=== PATIENT | female | born 1955 | race Caucasian/White ===

== ENCOUNTER → 2017-06-23 | Outpatient (CLI) | payer BC ==
--- NOTE | 2017-06-23 09:12 | WOMENS IMAGING REPORT ---
EXAM DESCRIPTION: BILAT SCREENING MAMMO W/CAD COMPLETED DATE/TIME: 06/23/2017 8:24 am REASON FOR STUDY: SCREENING MAMMO Z12.31 ENCNTR SCREEN MAMMOGRAM FOR MALIGNANT NEOPLASM OF BENJY COMPARISON: Annual priors dating back to January 2008. TECHNIQUE: Standard craniocaudal and mediolateral oblique views of each breast recorded using Favesa l acquisition. LIMITATIONS: None. FINDINGS: No masses, calcifications or architectural distortion. No areas of suspicion. Read with the assistance of CAD. .[facility] - R2 Cenova Version 1.3 .[facility] Imaging - R2 Cenova Version 1.3 .[facility] Imaging - R2 Cenova Version 2.4 .[facility] - R2 Cenova Version 2.4 .[facility] - R2 Customer Business Manager Version 9.2 IMPRESSION: NORMAL MAMMOGRAM. BIRADS 1. BREAST DENSITY: b. There are scattered areas of fibroglandular density. BIRAD: 1 NEGATIVE RECOMMENDATION: ROUTINE SCREENING COMMENT: The patient has been notified of the results by letter per SA requirements. Additional no tification policies are in place for contacting patient with suspicious or incomplete findings. Quality ID #225: The [employer] recommends an annual screening mammogram for women aged 40 years or over. This facility utilizes a reminder system to ensure that all patients receive reminder letters, and/or direct phone calls for appointments. This includes reminders for routine scr eening mammograms, diagnostic mammograms, or other Breast Imaging Interventions when appropriate. Th is patient will be placed in the appropriate reminder system. The [employer] (ACR) has developed recommendations for screening MRI of the breast s in certain patient populations, to be used in conjunction with mammography. Breast MRI surveillanc e may be appropriate for women with more than 20% lifetime risk of developing breast cancer as deter mined by genetic testing, significant family history of the disease, or history of mantle radiation f or Hodgkins Disease. ACR Practice Guidelines 2008. TECHNICAL DOCUMENTATION: FINDING NUMBER: (1) ASSESSMENT: (1) JOB ID: [id number] [employer]- All Rights Reserved
== END ==
LOC: WI 08:06
PROVIDERS: ATTEND Nurse Practitioner Family
DX: Z12.31 Encounter for screening mammogram for malignant neoplasm of breast (principal)
CPT/HCPCS: 77067; G0202

== ENCOUNTER → 2018-06-25 | Outpatient (CLI) | payer BC ==
--- NOTE | 2018-06-25 10:31 | WOMENS IMAGING REPORT ---
EXAM DESCRIPTION: BILAT SCREENING MAMMO W/CAD COMPLETED DATE/TIME: 06/25/2018 9:02 am REASON FOR STUDY: SCREENING MAMMO Z12.31 ENCNTR SCREEN MAMMOGRAM FOR MALIGNANT NEOPLASM OF BENJY COMPARISON: [id number] TECHNIQUE: Standard craniocaudal and mediolateral oblique views of each breast recorded using digita l acquisition. LIMITATIONS: None. FINDINGS: No masses, calcifications or architectural distortion. No areas of suspicion. Read with the assistance of CAD. .[facility] - R2 Cenova Version 1.3 .[facility] Imaging - R2 Cenova Version 1.3 .[facility] Imaging - R2 Cenova Version 2.4 .[facility] [place] R2 Cenova Version 2.4 .[facility] - R2 International Student Advisor Version 9.2 IMPRESSION: NORMAL MAMMOGRAM. BIRADS 1. BREAST DENSITY: b. There are scattered areas of fibroglandular density. BIRAD: 1 NEGATIVE RECOMMENDATION: ROUTINE SCREENING COMMENT: The patient has been notified of the results by letter per MQSA requirements. Additional no tification policies are in place for contacting patient with suspicious or incomplete findings. Quality ID #225: The [employer] recommends an annual screening mammogram for women aged 40 years or over. This facility utilizes a reminder system to ensure that all patients receive reminder letters, and/or direct phone calls for appointments. This includes reminders for routine scr eening mammograms, diagnostic mammograms, or other Breast Imaging Interventions when appropriate. Th is patient will be placed in the appropriate reminder system. The [employer] (ACR) has developed recommendations for screening MRI of the breast s in certain patient populations, to be used in conjunction with mammography. Breast MRI surveillanc e may be appropriate for women with more than 20% lifetime risk of developing breast cancer as deter mined by genetic testing, significant family history of the disease, or history of mantle radiation f or Hodgkins Disease. ACR Practice Guidelines 2008. TECHNICAL DOCUMENTATION: FINDING NUMBER: (1) ASSESSMENT: (1) JOB ID: [id number] [employer]- All Rights Reserved Reading location - IP/workstation name: [email or web address]
== END ==
LOC: WI 08:12
PROVIDERS: ATTEND Physician Assistant
DX: Z12.31 Encounter for screening mammogram for malignant neoplasm of breast (principal)
CPT/HCPCS: 77067

== ENCOUNTER 2018-07-19 08:50 | Day surgery (SDC) | payer BC ==
[2018-07-10 12:09] LABS: APPEARANCE,URINE CLEAR; BILIRUBIN,URINE NEGATIVE (NEGATIVE); COLOR,URINE STRAW; GLUCOSE, URINE NEGATIVE (NEGATIVE); KETONES,URINE NEGATIVE (NEGATIVE); LEUKOCYTE ESTERASE,URINE MODERATE (NEGATIVE); NITRITE,URINE NEGATIVE (NEGATIVE); PROTEIN,URINE NEGATIVE (NEGATIVE); URINE SPECIFIC GRAVITY 1.009; UROBILINOGEN,URINE NEGATIVE mg/dL (<2.0)
--- NOTE | 2018-07-10 12:35 | RADIOLOGY REPORT (SQ) ---
EXAM DESCRIPTION: CHEST PA/LATERAL COMPLETED DATE/TIME: 07/10/2018 11:49 am REASON FOR STUDY: PRE-OP COMPARISON: None. EXAM PARAMETERS: NUMBER OF VIEWS: two views TECHNIQUE: Digital Frontal and Lateral radiographic views of the chest acquired. RADIATION DOSE: NA LIMITATIONS: none FINDINGS: LUNGS AND PLEURA: No opacities, masses or pneumothorax. No pleural effusion. MEDIASTINUM AND HILAR STRUCTURES: No masses or contour abnormalities. HEART AND VASCULAR STRUCTURES: Heart normal size. No evidence for failure. BONES: No acute findings. HARDWARE: Clips right upper quadrant post cholecystectomy OTHER: No other significant finding. IMPRESSION: NO SIGNIFICANT RADIOGRAPHIC FINDING IN THE CHEST. TECHNICAL DOCUMENTATION: JOB ID: [id number] [employer]- All Rights Reserved Reading location - IP/workstation name: [email or web address]
[2018-07-10 12:45] LABS: BLOOD UREA NITROGEN 15 mg/dL (7-20); CALCIUM 9.3 mg/dL (8.4-10.2); GLUCOSE 85 mg/dL (75-110)
[2018-07-10 12:46] LABS: ALANINE AMINOTRANSFERASE 22 U/L (9-52); ALBUMIN 4.5 g/dL (3.5-5.0); ALKALINE PHOSPHATASE 90 U/L (38-126); ANION GAP 11 (5-19); ASPARTATE AMINO TRANSFERASE 21 U/L (14-36); BILIRUBIN,DIRECT 0.3 mg/dL (0.0-0.4); BILIRUBIN,TOTAL 0.9 mg/dL (0.2-1.3); CARBON DIOXIDE 27 mmol/L (22-30); CHLORIDE 104 mmol/L (98-107); POTASSIUM 4.5 mmol/L (3.6-5.0)
[2018-07-10 12:47] LABS: TOTAL PROTEIN 7.4 g/dL (6.3-8.2)
[2018-07-10 13:14] LABS: HEMATOCRIT 44.3 % (36.0-47.0); HEMOGLOBIN 14.7 g/dL (12.0-15.5); MEAN CORPUSCULAR HEMOGLOBIN 30.3 pg (27.0-33.4); MEAN CORPUSCULAR VOLUME 91 fl (80-97); RED BLOOD COUNT 4.86 10^6/uL (3.72-5.28); WHITE BLOOD COUNT 6.2 10^3/uL (4.0-10.5)
[2018-07-10 13:15] LABS: MEAN CORPUSCULAR HGB CONC 33.3 g/dL (32.0-36.0); PLATELET COUNT 202 10^3/uL (150-450); RED CELL DISTRIBUTION WIDTH 13.3 % (11.5-14.0)
--- NOTE | 2018-07-10 23:09 | EKG REPORT ---
SEVERITY:- NORMAL ECG - SINUS RHYTHM : Confirmed by: Katy Márquez 10-Jul-2018 23:08:52
[~2018-07-19 08:50] MED LIST: CEFAZOLIN 2 GM/D5W RTU 2 GM/50 ML RTUPB IV ONE; CEFAZOLIN 2 GM/D5W RTU 2 GM/50 ML RTUPB IV PRN; LACTATED RINGERS 1000 ML IV PRN; LIDOCAINE 0.5% INJ-PF (5 MG/ML) 50 ML SDV SUBCUT PRN; LIDOCAINE 0.5%/EPINEPHRINE INJ 50 ML VIAL ONE
[2018-07-19] MEDS ORDERED: ROCURONIUM BROMIDE INJ 50 MG/5 ML VIAL IV ONE (09:31)
[2018-07-19] MEDS ORDERED: NEOSTIGMINE METHYLSULFATE 10 MG/10 ML VIAL ONE (09:31)
[2018-07-19] MEDS ORDERED: ONDANSETRON HCL INJ/PF 4 MG/2 ML SDV ONE ×2 (09:31→14:52)
[2018-07-19] MEDS ORDERED: GLYCOPYRROLATE 1 MG/5 ML SYRINGE ONE (09:31)
[2018-07-19] MEDS ORDERED: DEXAMETHASONE SOD PHOSPHATE INJ 4 MG/1 ML VIAL ONE (09:31)
[2018-07-19] MEDS ORDERED: HYDROMORPHONE HCL INJ/PF 2 MG/ML AMPULE ONE (10:03)
[2018-07-19] MEDS ORDERED: FENTANYL CITRATE INJ/PF 250 MCG/5 ML AMPULE ONE (10:03)
[2018-07-19] MEDS ORDERED: ACETAMINOPHEN 1,000 MG/100 ML RTUPB IV ONE (10:03)
[2018-07-19] MEDS ORDERED: PROPOFOL INJ 200 MG/20 ML VIAL IV ONE (10:03)
[2018-07-19] MEDS ORDERED: MIDAZOLAM 2 MG/2 ML INJ ONE (10:03)
[2018-07-19] MEDS ORDERED: PROMETHAZINE HCL INJ 25 MG/1 ML VIAL IV PRN ×3 (10:59→13:44)
[2018-07-19] MEDS ORDERED: DIPHENHYDRAMINE HCL 50 MG/ML VIAL IV PRN (10:59)
[2018-07-19] MEDS ORDERED: MEPERIDINE HCL/PF INJ 25 MG/1 ML DISP.SYRIN IV PRN (10:59)
[2018-07-19] MEDS ORDERED: FENTANYL CITRATE INJ/PF 100 MCG/2 ML AMPUL IV PRN ×3 (10:59)
[2018-07-19] MEDS ORDERED: PROMETHAZINE HCL INJ 25 MG/1 ML VIAL ONE (13:41)
[2018-07-19] MEDS ORDERED: SIMETHICONE 80 MG TAB.CHEW PO PRN (13:44)
[2018-07-19] MEDS ORDERED: OXYCODONE-ACETAMINOPHEN 5-325 MG TABLET PO PRN ×2 (13:44)
[2018-07-19] MEDS ORDERED: HYDROMORPHONE HCL INJ/PF 2 MG/ML AMPULE IV PRN (13:44)
[2018-07-19] MEDS ORDERED: ACETAMINOPHEN 325 MG TABLET PO PRN (13:44)
[2018-07-19] MEDS ORDERED: ACETAMINOPHEN 1,000 MG/100 ML RTUPB IV PRN (13:44)
--- NOTE | 2018-07-19 14:03 | Operative Report ---
Operative Report DATE OF SURGERY: 07/19/18 PREOPERATIVE DIAGNOSIS: Cervical prolapse to the introitus and cystocele as well as gaping introitus POSTOPERATIVE DIAGNOSIS: Same OPERATION: Laparoscopic assisted vaginal hysterectomy bilateral salpingo- oophorectomy anterior and posterior repair SURGEON: KRYSTA TINEO ANESTHESIA: GA TISSUE REMOVED OR ALTERED: Uterus cervix fallopian tubes ovaries COMPLICATIONS: None ESTIMATED BLOOD LOSS: 125 cc INTRAOPERATIVE FINDINGS: Adhesions at the left fallopian tube and ovary otherwise normal-appearing ovaries and uterus. PROCEDURE: Patient was taken the OR and placed in supine position. General anesthesia was induced. She is placed in the dorsolithotomy position using Guillermo stirrups. Her abdomen and vagina and perineum were prepared and draped in sterile fashion. A weighted speculum was placed in the vagina and a V care uterine manipulator was placed into the uterus. A Stuart catheter was placed in the bladder for drainage. An incision was made at the umbilicus and natural umbilical defect was identified and blunt port was placed. Laparoscopy confirmed appropriate placement. A left lateral port was placed under laparoscopic visualization and a suprapubic port was placed under laparoscopic visualization. View of the pelvis was good the left ovary and tube were adhesed the right ovary and tube were free. The ureters were identified well away from the ovarian pedicles. The right ovary and tube were retracted medially and the infundibulopelvic pedicle was ligated and then cut with the LigaSure device. The mesosalpinx was also ligated and cut with the LigaSure device. Next the adhesions on the left tube and ovary were freed up using sharp and blunt dissection. This allowed the tube and ovary to be retracted medially and using the LigaSure device the infundibulopelvic pedicle was ligated and cut as well as the mesosalpinx which was ligated and cut with the LigaSure device. Next the broad ligament was divided by clamping next to the uterine body with the LigaSure device and using cautery and then cutting the tissue. Also while elevating the uterus up out of the pelvis with the V care manipulator the uterine arteries were also clamped ligated and cut directly next to the uterus using the LigaSure device. At this point we stopped with the abdominal portion of the procedure and proceeded to the vaginal portion. A weighted speculum was placed in the vagina. The cervix was grasped with tenaculum and infiltrated around its circumference with a dilute solution of lidocaine with epinephrine. A circumferential incision was made on the cervix and the vaginal skin was reflected off the cervix using sharp and blunt dissection. The posterior cul-de-sac was palpated and then entered with curved Parks scissors. A long weighted speculum was then placed through this incision. The anterior cul-de-sac was identified using blunt and sharp dissection. The peritoneum was grasped and incised entering the anterior cul-de-sac. And a Grant retractor was placed through this incision. The uterosacral ligaments were then clamped cut and ligated using a curved Duane clamp and transfixation suture of 0 Vicryl. The cardinal ligaments were also clamped cut and ligated using curved Duane clamp and transfixation suture of 0 Vicryl. The uterus tubes and ovaries were then removed through the vagina. The pedicles were inspected for bleeding and no active bleeding was found. Angle suture of 0 Vicryl were placed bilaterally incorporating anterior vaginal mucosa uterosacral pedicle and posterior vaginal mucosa. The next step was to address the cystocele. The edge of the vaginal mucosa was grasped at 6:00 with Allis clamps. The vaginal mucosa was infiltrated with a dilute solution of lidocaine with epinephrine. A vertical midline incision was then made with Metzenbaum scissors over the cystocele. The edges of the vaginal skin were grasped with Allis clamps. Using sharp and blunt dissection the vaginal skin was reflected off the cystocele. 2 pursestring sutures of 3-0 chromic were then used to decrease the size of the cystocele. The lateral tissue was then brought medially with interrupted sutures of 2-0 Vicryl which closed the lateral tissue over the cystocele. The edge of the anterior vaginal mucosa was trimmed and the vaginal mucosa was closed with interrupted sutures of 2-0 Vicryl. At the end of the procedure there was no more cystocele. The vaginal cuff was closed with a running suture of 0 Vicryl. Next to address the gaping vagina Allis clamps were placed at 7:00 and 5:00 on the vagina. A triangular piece of skin on the perineum was removed with the scalpel. A 0 Vicryl stitch was then used to bring the perineum together greatly diminishing the diameter of the vaginal opening. Care was taken to still allow the opening enough room to allow intercourse. A second perineal stitch was placed just below the initial stitch to close off the remainder of the perineum. The cut edge of the vaginal mucosa was also closed with interrupted suture of Vicryl. Hemostasis was good the vagina was irrigated and suctioned free of fluid. There was good depth to the vaginal canal. The tanning wheel operator then re-scrubbed. We went back to the abdominal portion of the case. The abdomen was reinsufflated and the pelvis was inspected for bleeding. The pelvis was irrigated and blood and fluid were suctioned free. No active bleeding was seen at the vaginal cuff or at the pedicles. The ports were removed under laparoscopic visualization. The gas was allowed to escape from the abdomen. The umbilical port and scope were removed at the same time. The fascia at the umbilicus was closed with a 2-0 Vicryl and skin closed with 4-0 undyed Vicryl at all 3 sites. The patient was extubated and taken to recovery in stable condition.
[2018-07-19] MEDS ORDERED: SCOPOLAMINE HYDROBROMIDE 1.5 MG PATCH.TD72 ONE (14:51)
[2018-07-19] MEDS: KETOROLAC TROMETHAMINE INJ/PF 30 MG/1 ML SDV IV SCH ×2 (16:28→21:05)
[2018-07-19] MEDS: IBUPROFEN 800 MG TABLET PO SCH (17:14)
[2018-07-19] MEDS: DOCUSATE SODIUM 100 MG CAPSULE PO SCH (17:15)
[2018-07-19 17:19] LABS: ABSOLUTE LYMPHOCYTES (AUTO) 0.7 10^3/uL (0.5-4.7); ABSOLUTE MONOCYTES (AUTO) 0.4 10^3/uL (0.1-1.4); ABSOLUTE NEUT (AUTO) 8.9 10^3/uL (1.7-8.2); BASOPHILS % (AUTO) 0.1 % (0-2); HEMATOCRIT 38.7 % (36.0-47.0); HEMOGLOBIN 13.2 g/dL (12.0-15.5); MEAN CORPUSCULAR HEMOGLOBIN 30.6 pg (27.0-33.4); MEAN CORPUSCULAR HGB CONC 34.1 g/dL (32.0-36.0); MEAN CORPUSCULAR VOLUME 90 fl (80-97); MONOCYTES % (AUTO) 3.9 % (3-13); PLATELET COUNT 182 10^3/uL (150-450); RED BLOOD COUNT 4.32 10^6/uL (3.72-5.28); RED CELL DISTRIBUTION WIDTH 13.3 % (11.5-14.0); TOTAL CELLS COUNTED % (AUTO) 100 %; WHITE BLOOD COUNT 10.1 10^3/uL (4.0-10.5)
[2018-07-19] MEDS: RINGERS SOLUTION,LACTATED 1,000 ML IV PRN (21:05)
[2018-07-20] MEDS: IBUPROFEN 800 MG TABLET PO SCH ×2 (03:17→05:35)
[2018-07-20] MEDS: KETOROLAC TROMETHAMINE INJ/PF 30 MG/1 ML SDV IV SCH (05:34)
[2018-07-20] MEDS: RINGERS SOLUTION,LACTATED 1,000 ML IV PRN (05:43)
[2018-07-20 07:00] LABS: HEMATOCRIT 35.5 % (36.0-47.0); MEAN CORPUSCULAR HEMOGLOBIN 30.9 pg (27.0-33.4); MEAN CORPUSCULAR HGB CONC 33.9 g/dL (32.0-36.0); MEAN CORPUSCULAR VOLUME 91 fl (80-97); PLATELET COUNT 166 10^3/uL (150-450); RED BLOOD COUNT 3.89 10^6/uL (3.72-5.28); RED CELL DISTRIBUTION WIDTH 13.2 % (11.5-14.0); WHITE BLOOD COUNT 8.5 10^3/uL (4.0-10.5)
--- NOTE | 2018-07-20 09:50 | PDOC DISCHARGE SUMMARY ---
General - Admit/Disc Date/PCP Admission Date/Primary Care Provider: SHANNON WINTERS PA-C Discharge Date: 07/20/18 - Discharge Diagnosis (1) Complete uterine prolapse with prolapse of anterior vaginal wall Is this a current diagnosis for this admission?: Yes - Additional Information Home Medications: Cholecalciferol (Vitamin D3) [Vitamin D3] 1 cap PO ASDIR 07/10/18 Multivitamin [One-A-Day Essential] 1 tab PO DAILY 07/10/18 Omeprazole 1 cap PO DAILY PRN 07/10/18 Pseudoephedrine HCl [Sudafed] 1 tab PO DAILY PRN 07/10/18 Simvastatin 0.5 tab PO DAILY 07/10/18 Vitamin E (Dl, Acetate) [Vitamin E 400 Unit Capsule] 1 cap PO DAILY 07/10/18 History of Present Illness Patient complains of: Uterine prolapse and cystocele History of Present Illness: SHARRI ROMANO is a 63 year old female Hospital Course Hospital Course: Patient was admitted and underwent laparoscopic assisted vaginal hysterectomy with anterior repair and posterior repair. She did well through the night. We will remove her Stuart catheter today and as long as she is able to void normally she will be sent home later today with pain medication. She will have her follow-up in 1 week. Physical Exam - Physical Exam Vital Signs: Temp Pulse Resp BP Pulse Ox 98.4 F 71 18 97/52 L 97 07/20/18 08:39 07/20/18 08:39 07/20/18 08:39 07/20/18 08:39 07/20/18 08:39 Intake & Output 07/19/18 07/20/18 07/21/18 06:59 06:59 06:59 Intake Total 4100 Output Total 2105 1994 Weight 65.32 kg General appearance: PRESENT: no acute distress - Her abdomen is soft nontender, well-developed, well-nourished Result Laboratory Results: 07/20/18 06:25 07/10/18 11:20 07/19/18 07/20/18 17:07 06:25 WBC 10.1 8.5 RBC 4.32 3.89 Hgb 13.2 12.0 Hct 38.7 35.5 L MCV 90 91 MCH 30.6 30.9 MCHC 34.1 33.9 RDW 13.3 13.2 Plt Count 182 166 Seg Neutrophils % 89.0 H Lymphocytes % 7.0 L Monocytes % 3.9 Eosinophils % 0.0 Basophils % 0.1 Absolute Neutrophils 8.9 H Absolute Lymphocytes 0.7 Absolute Monocytes 0.4 Absolute Eosinophils 0.0 Absolute Basophils 0.0 Impressions: Chest X-Ray 07/10/18 11:44 IMPRESSION: NO SIGNIFICANT RADIOGRAPHIC FINDING IN THE CHEST. Plan Discharge Plan: Plan is to discharge home today with rest. Prescriptions have been written. She will follow-up in the office in a week. Time Spent: Less than 30 Minutes
[2018-07-20] MEDS: DOCUSATE SODIUM 100 MG CAPSULE PO SCH (10:12)
[2018-07-20 11:38] VITALS: BP 100/78
== END 2018-07-20 11:53 | disposition home or self-care (01) ==
LOC: OROUT 08:50 → 2N 15:43 → OROUT 07-20 11:53
PROVIDERS: ATTEND Obstetrics & Gynecology
DX: N81.2 Incomplete uterovaginal prolapse (principal); N83.8 Other noninflammatory disorders of ovary, fallopian tube and broad ligament; N81.89 Other female genital prolapse; K66.0 Peritoneal adhesions (postprocedural) (postinfection); I50.9 Heart failure, unspecified; K21.9 Gastro-esophageal reflux disease without esophagitis; Z79.899 Other long term (current) drug therapy; Z88.2 Allergy status to sulfonamides
CPT/HCPCS: 93005; 86900; 86901; 36415 ×3; 86850; 85025; 85027 ×2; 80053; 81001; 88307 ×2; 71046; 94799; 93010; 58552; 57260; J2250; J3490 ×3; J1100; J3010; J1885 ×2; J1170; J2550; J2405; J2704; J0690; J0131; 944

== ENCOUNTER 2019-04-17 09:35 | Day surgery (SDC) | payer BC ==
[~2019-04-17 09:35] MED LIST changes: -CEFAZOLIN 2 GM/D5W RTU 2 GM/50 ML RTUPB IV PRN; -LACTATED RINGERS 1000 ML IV PRN; -LIDOCAINE 0.5% INJ-PF (5 MG/ML) 50 ML SDV SUBCUT PRN; -LIDOCAINE 0.5%/EPINEPHRINE INJ 50 ML VIAL ONE
[2019-04-17] MEDS ORDERED: FENTANYL CITRATE INJ/PF 100 MCG/2 ML AMPUL ONE (10:07)
[2019-04-17] MEDS ORDERED: HYDROMORPHONE HCL INJ/PF 2 MG/ML AMPULE ONE (10:07)
[2019-04-17] MEDS ORDERED: MIDAZOLAM 2 MG/2 ML INJ ONE (10:07)
[2019-04-17] MEDS ORDERED: PROPOFOL INJ 200 MG/20 ML VIAL IV ONE (10:08)
[2019-04-17 10:26] LABS: HEMATOCRIT 37.6 % (36.0-47.0); HEMOGLOBIN 12.6 g/dL (12.0-15.5); MEAN CORPUSCULAR HEMOGLOBIN 30.4 pg (27.0-33.4); MEAN CORPUSCULAR HGB CONC 33.6 g/dL (32.0-36.0); MEAN CORPUSCULAR VOLUME 91 fl (80-97); PLATELET COUNT 197 10^3/uL (150-450); RED BLOOD COUNT 4.14 10^6/uL (3.72-5.28); RED CELL DISTRIBUTION WIDTH 13.2 % (11.5-14.0); WHITE BLOOD COUNT 7.4 10^3/uL (4.0-10.5)
[2019-04-17 10:50] LABS: ANION GAP 8 (5-19); BLOOD UREA NITROGEN 15 mg/dL (7-20); CALCIUM 9.2 mg/dL (8.4-10.2); CARBON DIOXIDE 27 mmol/L (22-30); CHLORIDE 106 mmol/L (98-107); GLUCOSE 91 mg/dL (75-110); POTASSIUM 4.1 mmol/L (3.6-5.0); SODIUM 141.2 mmol/L (137-145)
--- NOTE | 2019-04-17 10:53 | RADIOLOGY REPORT (SQ) ---
EXAM DESCRIPTION: CHEST SINGLE VIEW COMPLETED DATE/TIME: 04/17/2019 10:34 am REASON FOR STUDY: preop COMPARISON: None. NUMBER OF VIEWS: One view. TECHNIQUE: Single frontal radiographic view of the chest acquired. LIMITATIONS: None. FINDINGS: LUNGS AND PLEURA: No opacities, masses or pneumothorax. No pleural effusion. MEDIASTINUM AND HILAR STRUCTURES: No masses. Contour normal. HEART AND VASCULAR STRUCTURES: Heart normal in size. Normal vasculature. BONES: No acute findings. HARDWARE: None in the chest. OTHER: No other significant finding. IMPRESSION: NO SIGNIFICANT RADIOGRAPHIC FINDING IN THE CHEST. TECHNICAL DOCUMENTATION: JOB ID: [id number] [employer]- All Rights Reserved Reading location - IP/workstation name: [email or web address]
[2019-04-17] MEDS ORDERED: BUPIVACAINE HCL 0.25% /EPINEPHRINE INJ/PF 30 ML SDV ONE (11:49)
[2019-04-17] MEDS ORDERED: MORPHINE SULFATE 10 MG/ML INJ IV PRN (12:35)
[2019-04-17] MEDS ORDERED: DIPHENHYDRAMINE HCL 50 MG/ML VIAL IV PRN (12:35)
[2019-04-17] MEDS ORDERED: FENTANYL CITRATE INJ/PF 100 MCG/2 ML AMPUL IV PRN ×3 (12:35)
[2019-04-17] MEDS ORDERED: PROMETHAZINE HCL INJ 25 MG/1 ML VIAL IV PRN (12:35)
[2019-04-17] MEDS ORDERED: ONDANSETRON HCL INJ/PF 4 MG/2 ML SDV IV PRN (12:35)
[2019-04-17] MEDS ORDERED: OXYCODONE-ACETAMINOPHEN 5-325 MG TABLET PO PRN ×2 (12:35)
[2019-04-17] MEDS ORDERED: MEPERIDINE HCL/PF INJ 25 MG/1 ML DISP.SYRIN IV PRN (12:35)
--- NOTE | 2019-04-17 12:39 | Operative Report ---
Operative Report DATE OF SURGERY: 04/17/19 PREOPERATIVE DIAGNOSIS: Comminuted intra-articular left distal radius fracture POSTOPERATIVE DIAGNOSIS: Same OPERATION: Open reduction internal fixation left distal radius fracture SURGEON: JESI CAPONE ANESTHESIA: GA ESTIMATED BLOOD LOSS: 20 PROCEDURE: With the patient supine in the operative table left upper extremities prepped and draped in a sterile fashion. The limb is elevated for exsanguination tourniquet inflated 250 torr. A standard volar approach taken to the distal radius. This is between the flexor carpi palmaris tendon and the radial neurovascular bundle. The pronator quadratus is reflected ulnarward. The underlying fracture is identified. Its reduced under direct visualization and a pin is placed to the radial styloid to hold the reduction. The reduction was checked fluoroscopically and felt to be adequate both in terms of the volar tilt as well as the closure of the intra-articular component. Subsequently a [place] titanium distal volar plate is applied to the volar surface of the radius and secured with 3 screws distally and 3 screws proximally. Hardware position and fracture alignment are again checked fluoroscopically and felt to be adequate. The tourniquet is deflated. The wound is irrigated with bulb lavage. Hemostasis obtained with bipolar cautery. The wound was then closed in layers interrupted Vicryl followed by nylon. A sterile compressive dressing was applied and the patient's return to the PACU in satisfactory condition.
--- NOTE | 2019-04-17 12:41 | Discharge Summary ---
Discharge Summary (SDC) - Discharge Final Diagnosis: Comminuted intra-articular left distal radius fracture Date of Surgery: 04/17/19 Discharge Date: 04/17/19 Condition: Good Treatment or Instructions: Elevate left upper extremity Prescriptions: Hydrocodone/Acetaminophen [[place] 5-325 mg Tablet] 1 tab PO Q6 PRN #40 tablet PRN Reason: Referrals: SHANNON WINTERS PA-C [Primary Care Provider] - Discharge Diet: As Tolerated, Regular Respiratory Treatments at Home: Deep Breathing/Coughing Discharge Activity: Balance Activity w/Rest, No tub bath Home Care Assistance: None Needed Report the Following to Your Physician Immediately: Shortness of Breath, Fever over 101 Degrees, Drainage-Foul Smelling
--- NOTE | 2019-04-17 13:32 | RADIOLOGY REPORT (SQ) ---
EXAM DESCRIPTION: NO CHG FLUORO; WRIST LEFT 2 VIEWS COMPLETED DATE/TIME: 04/17/2019 1:09 pm REASON FOR STUDY: ORIF LEFT WRIST ASST WITH FLUORO IN OR S52.502A UNSP FRACTURE OF THE LOWER END OF LEFT RADIUS, INIT COMPARISON: None. FLUOROSCOPY TIME: 19 seconds 2 images saved to PACS. TECHNIQUE: Intra-operative images acquired during surgical procedure to evaluate progress. NUMBER OF IMAGES: 2 LIMITATIONS: None. FINDINGS: Fluoroscopic images from plate and screw fixation of distal radial fracture. IMPRESSION: IMAGE(S) OBTAINED DURING PROCEDURE. COMMENT: Quality ID 145: Final reports for procedures using fluoroscopy that document radiation exp osure indices, or exposure time and number of fluorographic images (if radiation exposure indices are not available) Please consult full operative report of the attending physician for description of the procedure. TECHNICAL DOCUMENTATION: JOB ID: [id number] [employer]- All Rights Reserved Reading location - IP/workstation name: [email or web address]
--- NOTE | 2019-04-17 13:32 | RADIOLOGY REPORT (SQ) ---
EXAM DESCRIPTION: NO CHG FLUORO; WRIST LEFT 2 VIEWS COMPLETED DATE/TIME: 04/17/2019 1:09 pm REASON FOR STUDY: ORIF LEFT WRIST ASST WITH FLUORO IN OR S52.502A UNSP FRACTURE OF THE LOWER END OF LEFT RADIUS, INIT COMPARISON: None. FLUOROSCOPY TIME: 19 seconds 2 images saved to PACS. TECHNIQUE: Intra-operative images acquired during surgical procedure to evaluate progress. NUMBER OF IMAGES: 2 LIMITATIONS: None. FINDINGS: Fluoroscopic images from plate and screw fixation of distal radial fracture. IMPRESSION: IMAGE(S) OBTAINED DURING PROCEDURE. COMMENT: Quality ID 145: Final reports for procedures using fluoroscopy that document radiation exp osure indices, or exposure time and number of fluorographic images (if radiation exposure indices are not available) Please consult full operative report of the attending physician for description of the procedure. TECHNICAL DOCUMENTATION: JOB ID: [id number] [employer]- All Rights Reserved Reading location - IP/workstation name: [email or web address]
[2019-04-17] MEDS ORDERED: HYDROCODONE/ACETAMINOPHEN 5-325 MG TABLET ONE (14:11)
[2019-04-17] MEDS ORDERED: HYDROCODONE/ACETAMINOPHEN 5-325 MG TABLET PO PRN (14:34)
[2019-04-17] MEDS ORDERED: DEXAMETHASONE SOD PHOSPHATE INJ 4 MG/1 ML VIAL ONE ×2 (14:43→15:14)
[2019-04-17] MEDS ORDERED: ROCURONIUM BROMIDE INJ 50 MG/5 ML VIAL IV ONE (14:43)
[2019-04-17] MEDS ORDERED: KETOROLAC TROMETHAMINE 60 MG/2 ML SDV ONE (14:43)
[2019-04-17] MEDS ORDERED: SUCCINYLCHOLINE CHLORIDE INJ 200 MG/10 ML VIAL ONE (14:43)
[2019-04-17] MEDS ORDERED: ONDANSETRON HCL INJ/PF 4 MG/2 ML SDV ONE ×2 (14:43→15:14)
[2019-04-17 16:16] VITALS: BP 134/68
--- NOTE | 2019-04-17 20:44 | EKG REPORT ---
SEVERITY:- NORMAL ECG - SINUS RHYTHM : Confirmed by: Siobhan Wilkins MD 17-Apr-2019 20:43:40
== END 2019-04-17 16:00 | disposition home or self-care (01) ==
LOC: OROUT 09:35
PROVIDERS: ATTEND Orthopaedic Surgery
DX: S52.572A Other intraarticular fracture of lower end of left radius, initial encounter for closed fracture (principal); X58.XXXA Exposure to other specified factors, initial encounter; E78.5 Hyperlipidemia, unspecified; Z79.899 Other long term (current) drug therapy
CPT/HCPCS: 36415; 85027; 80048; 71045; 73100; 93005; 93010; 01830; 25608; C1713 ×7; J2250; J3490 ×2; J1100; J1885; J1170; J0330; J2405; J2704; J0690; J3010

== ENCOUNTER → 2019-07-12 | Outpatient (CLI) | payer BC ==
--- NOTE | 2019-07-12 08:46 | WOMENS IMAGING REPORT ---
EXAM DESCRIPTION: BILAT SCREENING MAMMO W/CAD COMPLETED DATE/TIME: 07/12/2019 8:08 am REASON FOR STUDY: Z12.31 ENCOUNTER FOR SCREENING MAMMOGRAM FOR MALIGNANT NEOPLASM OF BREAST Z12.31 ENCNTR SCREEN MAMMOGRAM FOR MALIGNANT NEOPLASM OF BENJY Z78.0 ASYMPTOMATIC MENOPAUSAL STATE COMPARISON: [id number] EXAM PARAMETERS: Standard craniocaudal and mediolateral oblique views of each breast recorded using digital acquisition. Read with the assistance of CAD. .[facility] - [employer]ach Setter Version 9.2 LIMITATIONS: None. FINDINGS: No suspicious masses, suspicious calcifications or architectural distortion. No areas of c oncern. IMPRESSION: Negative MAMMOGRAM. BIRADS 1 BREAST DENSITY: b. There are scattered areas of fibroglandular density. BIRAD: ASSESSMENT: 1 NEGATIVE RECOMMENDATION: ROUTINE SCREENING COMMENT: The patient has been notified of the results by letter per MQSA requirements. Additional no tification policies are in place for contacting patient with suspicious or incomplete findings. Quality ID #225: The [employer] recommends an annual screening mammogram for women aged 40 years or over. This facility utilizes a reminder system to ensure that all patients receive reminder letters, and/or direct phone calls for appointments. This includes reminders for routine scr eening mammograms, diagnostic mammograms, or other Breast Imaging Interventions when appropriate. Th is patient will be placed in the appropriate reminder system. TECHNICAL DOCUMENTATION: FINDING NUMBER: (1) ASSESSMENT: (1) JOB ID: [id number] [employer]- All Rights Reserved Reading location - IP/workstation name: [email or web address]
--- NOTE | 2019-07-12 08:53 | WOMENS IMAGING REPORT ---
EXAM DESCRIPTION: BONE DENSITY HIP/SPINE COMPLETED DATE/TIME: 07/12/2019 8:08 am REASON FOR STUDY: Z78.0 ASYMPTOMATIC MENOPAUSAL STATE Z12.31 ENCNTR SCREEN MAMMOGRAM FOR MALIGNANT NEOPLASM OF BENJY Z78.0 ASYMPTOMATIC MENOPAUSAL STATE COMPARISON: 12/23/2012. TECHNIQUE: Dual-Energy X-ray Absorptiometry (DEXA) of the AP Spine and Hip. LIMITATIONS: None. FINDINGS: LUMBAR SPINE: The bone mineral density (BMD) measured from L1-L4 in the AP projection correlates with a T-score of -1.9, which is osteopenia as defined by the World Health Organization. BMD Change vs Baseline: -10.1% HIP: The bone mineral density (BMD) measured in the left hip correlates with a T-score of -1.7, which is o steopenia as defined by the World Health Organization. BMD Change vs Baseline: -13.4% from 12/26/2012. 10 year Fracture Risk Assessment: Major Osteoporotic Fracture: 18% Hip Fracture: 2.9% IMPRESSION: 1. LUMBAR SPINE WHO CLASSIFICATION: OSTEOPENIA. 2. HIP WHO CLASSIFICATION: OSTEOPENIA. OVERALL ASSESSMENT: WHO CLASSIFICATION: OSTEOPENIA. COMMENT: The World Health Organization defines low BMD as follows: T-score: Normal: Greater than -1.0 Osteopenia: Between -1.0 and -2.5 Osteoporosis: Less than -2.5 without fractures Established osteoporosis: Less than -2.5 with fractures In general, you may wish to consider: Diagnosis Treatment Follow-up DEXA Normal BMD Prevention 2-3 years Osteopenia Prevention/Therapy 1-2 years Osteoporosis Therapy Yearly TECHNICAL DOCUMENTATION: JOB ID: [id number] [employer]- All Rights Reserved Reading location - IP/workstation name: [email or web address]
== END ==
LOC: WI 07:29
PROVIDERS: ATTEND Physician Assistant
DX: Z12.31 Encounter for screening mammogram for malignant neoplasm of breast (principal); M85.88 Other specified disorders of bone density and structure, other site; Z78.0 Asymptomatic menopausal state
CPT/HCPCS: 77067; 77080

== ENCOUNTER 2019-09-17 15:45 | Day surgery (SDC) | payer BC ==
[2019-09-10 10:07] LABS: ABSOLUTE EOSINOPHILS # (AUTO) 0.1 10^3/uL (0.0-0.6); ABSOLUTE LYMPHOCYTES (AUTO) 2.2 10^3/uL (0.5-4.7); ABSOLUTE MONOCYTES (AUTO) 0.5 10^3/uL (0.1-1.4); ABSOLUTE NEUT (AUTO) 2.9 10^3/uL (1.7-8.2); BASOPHILS % (AUTO) 0.6 % (0-2); EOSINOPHILS % (AUTO) 1.7 % (0-6); HEMATOCRIT 43.5 % (36.0-47.0); HEMOGLOBIN 14.6 g/dL (12.0-15.5); LYMPHOCYTES % (AUTO) 38.6 % (13-45); MEAN CORPUSCULAR HEMOGLOBIN 30.6 pg (27.0-33.4); MEAN CORPUSCULAR HGB CONC 33.7 g/dL (32.0-36.0); MEAN CORPUSCULAR VOLUME 91 fl (80-97); MONOCYTES % (AUTO) 8.8 % (3-13); PLATELET COUNT 210 10^3/uL (150-450); RED BLOOD COUNT 4.78 10^6/uL (3.72-5.28); RED CELL DISTRIBUTION WIDTH 13.5 % (11.5-14.0); SEGMENTED NEUTROPHILS % (AUTO) 50.3 % (42-78); TOTAL CELLS COUNTED % (AUTO) 100 %; WHITE BLOOD COUNT 5.7 10^3/uL (4.0-10.5)
[2019-09-10 10:25] LABS: ANION GAP 11 (5-19); BLOOD UREA NITROGEN 15 mg/dL (7-20); CALCIUM 10.1 mg/dL (8.4-10.2); CARBON DIOXIDE 28 mmol/L (22-30); CHLORIDE 101 mmol/L (98-107); GLUCOSE 100 mg/dL (75-110); POTASSIUM 4.4 mmol/L (3.6-5.0)
--- NOTE | 2019-09-10 16:19 | EKG REPORT ---
SEVERITY:- NORMAL ECG - SINUS RHYTHM : Confirmed by: Siobhan Wilkins MD 10-Sep-2019 16:17:47
[~2019-09-17 15:45] MED LIST changes: -CEFAZOLIN 2 GM/D5W RTU 2 GM/50 ML RTUPB IV ONE; +CEFAZOLIN SODIUM 2 GM in DEXTROSE 5%-WATER 100 ML IV SCH; +LACTATED RINGERS 1000 ML IV PRN; +LIDOCAINE 0.5% INJ-PF (5 MG/ML) 50 ML SDV SUBCUT PRN
[2019-09-17] MEDS ORDERED: ONDANSETRON HCL INJ/PF 4 MG/2 ML SDV ONE (16:55)
[2019-09-17] MEDS ORDERED: FENTANYL CITRATE INJ/PF 100 MCG/2 ML AMPUL ONE (16:55)
[2019-09-17] MEDS ORDERED: MIDAZOLAM 2 MG/2 ML INJ ONE (16:55)
[2019-09-17] MEDS ORDERED: PROPOFOL INJ 200 MG/20 ML VIAL IV ONE (16:56)
[2019-09-17] MEDS ORDERED: LIDOCAINE 1% INJ-PF (10 MG/ML) 30 ML SDV ONE (16:59)
[2019-09-17] MEDS ORDERED: MORPHINE SULFATE 10 MG/ML INJ IV PRN (17:28)
[2019-09-17] MEDS ORDERED: DIPHENHYDRAMINE HCL 50 MG/ML VIAL IV PRN (17:28)
[2019-09-17] MEDS ORDERED: MEPERIDINE HCL/PF INJ 25 MG/1 ML DISP.SYRIN IV PRN (17:28)
[2019-09-17] MEDS ORDERED: FENTANYL CITRATE INJ/PF 100 MCG/2 ML AMPUL IV PRN ×3 (17:28)
[2019-09-17] MEDS ORDERED: PROMETHAZINE HCL INJ 25 MG/1 ML VIAL IV PRN ×2 (17:28)
[2019-09-17] MEDS ORDERED: ONDANSETRON HCL INJ/PF 4 MG/2 ML SDV IV PRN ×2 (17:28→17:51)
[2019-09-17] MEDS ORDERED: HYDROCODONE/ACETAMINOPHEN 5-325 MG TABLET PO PRN (17:51)
--- NOTE | 2019-09-17 17:51 | Discharge Summary ---
Discharge Summary (SDC) - Discharge Final Diagnosis: Right Carpal Tunnel Date of Surgery: 09/17/19 Discharge Date: 09/17/19 Condition: Good Treatment or Instructions: Schedule Follow Up w/ Dr. Trevor Shannon @ [facility] to be seen in 10-14 days or as scheduled [place]: [place]: [place]: May remove dressing on postop day #3, keep incision covered and dry. Ice and elevate May begin finger range of motion attempting to make full fist. Stool softener of choice when on pain medication. USE OF [id number] IBUPROFEN: Ibuprofen (Advil, Nuprin, Medipren, Motrin IB) is a medication for fever and pain control. In addition, it has anti- inflammatory effects which may be beneficial, especially in the treatment of injuries. It's best to take ibuprofen with food. Persons with ulcer disease or allergy to aspirin should notify their physician of this before taking ibuprofen. Ibuprofen can be given every four to six hours, for a total of four doses daily. Age Pain or fever dose Antiinflammatory dose 6-8 yr 200 mg (1 tab) 200 mg (1 tab) 9-11 yr 200 mg (1 tab) 200-400 mg (1-2 tab) 11-14 yr 200-400 mg (1-2 tab) 400 mg (2 tab) 15-adult 400 mg (2 tab) 600 mg (3 tab) ORAL NARCOTIC MEDICATION: You have been given a prescription for pain control. This medication is a narcotic. It's best taken with food, as nausea can result if taken on an empty stomach. Don't operate machinery or drive within six hours of taking this medication. Do not combine this medicine with alcohol, or with any medication which can cause sedation (such as cold tablets or sleeping pills) unless you get permission from the physician. Narcotics tend to cause constipation. If possible, drink plenty of fluids and eat a diet high in fiber and fruits. Please be aware that prescription narcotics also have the potential for abuse. People become addicted to these medications because of the general sense of wellbeing that they induce. This feeling along with a significant reduction in tension, anxiety, and aggression provides a stimulating seductive quality to these drugs. Once your pain is under control, we encourage you to discard your unused narcotics. Prescriptions: Hydrocodone/Acetaminophen [[place] 5-325 mg Tablet] 1 tab PO Q6 PRN #25 tablet PRN Reason: Referrals: SHANNON WINTERS PA-C [Primary Care Provider] - Discharge Diet: As Tolerated Respiratory Treatments at Home: Deep Breathing/Coughing, Incentive Spirometer Discharge Activity: No Lifting Over 10 Pounds, No Lifting/Push/Pulling Report the Following to Your Physician Immediately: Fever over 101 Degrees, Unusual Bleeding, Redness, Swelling, Warmth, Increased Soreness
--- NOTE | 2019-09-17 17:51 | Operative Report ---
Operative Report DATE OF SURGERY: 09/17/19 PREOPERATIVE DIAGNOSIS: Right carpal tunnel syndrome POSTOPERATIVE DIAGNOSIS: Same OPERATION: Endoscopic right carpal tunnel release SURGEON: [place] ANESTHESIA: LMAC COMPLICATIONS: None ESTIMATED BLOOD LOSS: Minimal PROCEDURE: Indication for above procedure: 64-year-old female with longstanding history of numbness and tingling in her right upper extremity. Patient sustained distal radius fracture in the past and ever since that time she had numbness and tingling in her fingers which slowly has increased despite conservative management including bracing. At that point electrodiagnostic test confirmed carpal tunnel syndrome and decision was made to proceed with carpal tunnel release. Procedure In Detail: Patient was seen and evaluated in the preoperative holding area. The RIGHT upper extremity was initialized and marked. Patient received Ancef IV for bacterial prophylaxis. Patient was taken back to the operative room where transferred operative table. Patient was then placed under MAC anesthesia. Once adequately anesthetized, a nonsterile tourniquet was placed on the upper extremity. A surgical team debriefing was performed ensuring all instrumentation was available, the surgical procedure was discussed with possible concerns reviewed. Skin was prepped with alcohol and 10cc of 1% lidocaine without epinephrine was injected locally and w/in carpal canal. The upper extremity was prepped with chlorhexidine and alcohol and draped in a sterile fashion. A timeout was done identifying correct patient, procedure and extremity everyone in attendance agree with this and verbalized no concerns.The extremity was then exsanguinated the tourniquet was inflated to 250 mmHg. A transverse skin incision was made just proximal to the wrist flexion crease ulnar to the palmaris longus. Blunt dissection was performed down to the palmaris longus tendon which was retracted radially. Deep to the palmaris longus tendon was the volar carpal ligament this was incised identifying the median nerve deep. With the use of a [place] elevator any soft tissue/synovium was freed from the undersurface of the transverse carpal ligament. The hook of hamate was identified ulnarly. The ConMed cannulas were then introduced beginning with #1 progressing to a #3 gently dilating the carpal canal. I then introduced the scope within the cannula and identified transverse carpal ligament ensuring the median nerve was not visualized within the cannula. I triangulated distally with a 25-gauge needle identifying the distal aspect of the transverse carpal ligament, to ensure protection of the superficial palmar arch. The arthroscopic knife was used to incise the transverse carpal ligament under direct visualization with the arthroscopic camera. Any excess transverse fibers that remained after the first past were carefully released with a repeat pass. The median nerve was then directly visualized radially without disruption. Once this was completed I placed the #3 dilator and assured I got complete release of the transverse carpal ligament without residual compression. The median nerve was directly visualized and free of any overlying compression. I then turned my attention to release of the volar antebrachial fascia proximally. Once again a [place] was used to open the wound and I proceeded with cannula #1 to #3. The arthroscope was introduced into the cannula and under direct visualization the volar antebrachial fascia was released. Once this was complete I copiusly irrigated the wound with normal saline. The skin incision was closed with 4-0 Monocryl subcutaneous and a running subcuticular 4-0 Monocryl. This was reinforced with Dermabond and Steri-Strips. Sterile, 4 x 4's and a Thomas bandage was placed loosely. Sponge counts, instrument counts and needle counts were correct. The was no intraoperative complications patient tolerated the procedure well and was stable to PACU.
[2019-09-17 19:54] VITALS: BP 112/69
== END 2019-09-17 19:00 | disposition home or self-care (01) ==
LOC: OROUT 15:45
PROVIDERS: ATTEND Orthopaedic Surgery
DX: G56.01 Carpal tunnel syndrome, right upper limb (principal); R01.1 Cardiac murmur, unspecified; Z79.899 Other long term (current) drug therapy
CPT/HCPCS: 93005; 36415; 85025; 80048; 93010; 01810; 64721; J2250; J0690; J3010; J3490; J2405; J7060; J2704; 1810

== ENCOUNTER → 2020-10-27 | Outpatient (CLI) | payer BC ==
--- NOTE | 2020-10-27 11:07 | WOMENS IMAGING REPORT ---
EXAM DESCRIPTION: 3D SCREENING MAMMO BILAT IMAGES COMPLETED DATE/TIME: 10/27/2020 8:53 am REASON FOR STUDY: Z12.31 ENCOUNTER FOR SCREENING MAMMOGRAM FOR MALIGNANT NEOPLASM OF BREAST Z12.31 ENCNTR SCREEN MAMMOGRAM FOR MALIGNANT NEOPLASM OF BENJY COMPARISON: Priors dating back to 2012 EXAM PARAMETERS: Views: Standard craniocaudal and mediolateral oblique views of each breast recorded using digital acquisition and breast tomosynthesis. Read with the assistance of CAD. .[facility] - [employer] Payroll Coordinator Version 9.2 LIMITATIONS: None. FINDINGS: No suspicious masses, suspicious calcifications or architectural distortion. No areas of c oncern. IMPRESSION: NEGATIVE MAMMOGRAM. BIRADS 1. BREAST DENSITY: b. There are scattered areas of fibroglandular density. BIRAD: ASSESSMENT: 1 NEGATIVE RECOMMENDATION: ROUTINE SCREENING COMMENT: The patient has been notified of the results by letter per MQSA requirements. Additional no tification policies are in place for contacting patient with suspicious or incomplete findings. Quality ID #225: The [employer] recommends an annual screening mammogram for women aged 40 years or over. This facility utilizes a reminder system to ensure that all patients receive reminder letters, and/or direct phone calls for appointments. This includes reminders for routine scr eening mammograms, diagnostic mammograms, or other Breast Imaging Interventions when appropriate. Th is patient will be placed in the appropriate reminder system. TECHNICAL DOCUMENTATION: FINDING NUMBER: (1) ASSESSMENT: (1) JOB ID: [id number] 2010 [employer]- All Rights Reserved Reading location - IP/workstation name: [email or web address]
== END ==
LOC: WI 08:16
PROVIDERS: ATTEND Physician Assistant
DX: Z12.31 Encounter for screening mammogram for malignant neoplasm of breast (principal)
CPT/HCPCS: 77063; 77067